=== PATIENT | female | born 1960 | race Caucasian/White ===

== ENCOUNTER 2020-02-05 12:55 | Emergency (ER) | payer BC, OTHER ==
[~2020-02-05 12:55] MED LIST: CTRZ10T; HCTZ12.5T; KCL10CCR; LVT.15T
--- NOTE | 2020-02-05 12:59 | ED Cardiac General ---
History of Present Illness General Chief Complaint: Chest Pain Stated Complaint: CHEST PAIN History of Present Illness Date Seen by Provider: Feb 05, 2020 Time Seen by Provider: 12:59 Initial Comments 59-year-old female presents with left sided lower chest upper abdomen pain that radiates to her back. Patient reports that started around 12:15. Shortly after that she took 324 mg of aspirin with no relief. Patient reports that the pain is a mild discomfort. That nothing makes it worse or better. She has no shortness of breath, diaphoresis, nausea, vomiting, fevers, chills, cough. Patient reports that in 2018 she had a heart attack. Patient reports a repeat cardiac catheterization at [facility] and October that was completely normal with improvement from her prior catheterization. Allergies and Home Medications Allergies Coded Allergies: Azithromycin (Unverified Allergy, Intermediate, HIVES AND UNABLE TO BREATHE, 06/14/06) Sulfa (Sulfonamides) (Unverified Allergy, Mild, HIVES, 06/14/06) Patient Home Medication List Home Medication List Reviewed: Yes Review of Systems Review of Systems Constitutional: No chills, No dizziness, No fever, No malaise EENTM: No Symptoms Reported Respiratory: Denies Cough, Denies Shortness of Air, Denies Wheezing Cardiovascular: Chest Pain; Denies Irregular Heart Rate, Denies Lightheadedness, Denies Palpitations, Denies Syncope Gastrointestinal: Denies Abdominal Pain, Denies Diarrhea, Denies Nausea, Denies Vomiting Musculoskeletal: see HPI Skin: no symptoms reported Psychiatric/Neurological: No Symptoms Reported Endocrine: No Symptoms Reported Hematologic/Lymphatic: No Symptoms Reported Past Awqpljo-Lcaopv-Osrtpw Hx Past Med/Social Hx: Reviewed Nursing Past Med/Soc Hx Patient Social History Recent Foreign Travel: No Contact w/Someone Who Travel: No Past Medical History Reproductive Disorders: No Physical Exam Vital Signs Vital Signs - First Documented 02/05/20 13:00 Temp 35.7 Pulse 99 Resp 16 B/P (MAP) 177/85 (115) Pulse Ox 99 Capillary Refill : Height, Weight, BMI Height: '" Weight: lbs. oz. kg; BMI Method: General Appearance: No Apparent Distress, WD/WN HEENT: Moist Mucous Membranes Neck: Non Tender, Supple Respiratory: Lungs Clear, Normal Breath Sounds, No Accessory Muscle Use, No Respiratory Distress Cardiovascular: Regular Rate, Rhythm, No Edema, Normal Peripheral Pulses Gastrointestinal: Non Tender, Soft Extremity: Normal Capillary Refill, Normal Range of Motion Neurologic/Psychiatric: Alert, Oriented x3, Normal Mood/Affect, associate counsel II-XII Norm as Tested Skin: Normal Color, Warm/Dry Progress/Results/Core Measures Results/Orders Lab Results Laboratory Tests Test 02/05/20 13:09 02/05/20 15:01 Range/Units White Blood Count 10.8 4.3-11.0 10^3/uL Red Blood Count 4.47 4.35-5.85 10^6/uL Hemoglobin 13.9 11.5-16.0 G/DL Hematocrit 41 35-52 % Mean Corpuscular Volume 92 80-99 FL Mean Corpuscular Hemoglobin 31 25-34 PG Mean Corpuscular Hemoglobin Concent 34 32-36 G/DL Red Cell Distribution Width 13.3 10.0-14.5 % Platelet Count 202 130-400 10^3/uL Mean Platelet Volume 10.1 7.4-10.4 FL Immature Granulocyte % (Auto) 0 % Neutrophils (%) (Auto) 79 H 42-75 % Lymphocytes (%) (Auto) 15 12-44 % Monocytes (%) (Auto) 3 0-12 % Eosinophils (%) (Auto) 2 0-10 % Basophils (%) (Auto) 1 0-10 % Neutrophils # (Auto) 8.5 H 1.8-7.8 X 10^3 Lymphocytes # (Auto) 1.6 1.0-4.0 X 10^3 Monocytes # (Auto) 0.4 0.0-1.0 X 10^3 Eosinophils # (Auto) 0.2 0.0-0.3 10^3/uL Basophils # (Auto) 0.1 0.0-0.1 10^3/uL Immature Granulocyte # (Auto) 0.0 0.0-0.1 10^3/uL Prothrombin Time 12.6 12.2-14.7 SEC INR Comment 0.9 0.8-1.4 Activated Partial Thromboplast Time 24 24-35 SEC Sodium Level 142 135-145 MMOL/L Potassium Level 4.3 3.6-5.0 MMOL/L Chloride Level 104 98-107 MMOL/L Carbon Dioxide Level 24 21-32 MMOL/L Anion Gap 14 5-14 MMOL/L Blood Urea Nitrogen 13 7-18 MG/DL Creatinine 0.73 0.60-1.30 MG/DL Estimat Glomerular Filtration Rate > 60 BUN/Creatinine Ratio 18 Glucose Level 151 H 70-105 MG/DL Calcium Level 9.2 8.5-10.1 MG/DL Corrected Calcium 9.0 8.5-10.1 MG/DL Magnesium Level 1.8 1.6-2.4 MG/DL Total Bilirubin 0.7 0.1-1.0 MG/DL Aspartate Amino Transf (AST/SGOT) 87 H 5-34 U/L Alanine Aminotransferase (ALT/SGPT) 53 0-55 U/L Alkaline Phosphatase 287 H 40-136 U/L Myoglobin 26.3 10.0-92.0 NG/ML Troponin I < 0.30 < 0.30 <0.30 NG/ML Pro-B-Type Natriuretic Peptide 76.3 H <75.0 PG/ML Total Protein 7.6 6.4-8.2 GM/DL Albumin 4.2 3.2-4.5 GM/DL Lipase 26 8-78 U/L My Orders Orders - ESCALANTE,QUINTON L DO Cbc With Automated Diff (02/05/20 13:03) Magnesium (02/05/20 13:03) Chest 1 View Ap/Pa Only (02/05/20 13:03) Ekg Tracing (02/05/20 13:03) Comprehensive Metabolic Panel (02/05/20 13:03) Myoglobin Serum (02/05/20 13:03) Protime With Inr (02/05/20 13:03) Partial Thromboplastin Time (02/05/20 13:03) Monitor-Rhythm Ecg Trace Only (02/05/20 13:03) Lipid Panel (02/06/20 06:00) Ed Iv/Invasive Line Start (02/05/20 13:03) Lipase (02/05/20 13:03) Troponin I Fs (02/05/20 13:03) Probnp Fs (02/05/20 13:03) Troponin I Fs (02/05/20 14:46) Vital Signs/I&O 02/05/20 13:00 Temp 35.7 Pulse 99 Resp 16 B/P (MAP) 177/85 (115) Pulse Ox 99 Progress Progress Note : Time: 15:49 Progress Note Patient with negative EKG for any acute changes along with a negative troponin 2. Patient had a heart catheter in October that was also negative and improved from her previous one 2 years ago. Discussed outpatient follow-up with her taker away versus cardiology consult and transfer to her taker away and over them part. This time both her and I feel is reasonable that she can follow-up outpatient. I did discuss with her symptoms worsen she should return the ER or follow up with him sooner. Patient stable and will be discharged home Initial ECG Impression Date: Feb 05, 2020 Initial ECG Impression Time: 13:03 Initial ECG Rate: 92 Initial ECG Rhythm: Normal Sinus Initial ECG Impression: Nonspecific Changes Comment sinus, hr 92, non specific changes, no acute mi Diagnostic Imaging Diagonstic Imaging: Xray Plain Films/CT/US/NM/MRI: chest Comments [facility] [place], [place] NAME: [facility]JIT [facility] REC#: [id number] PT STATUS: REG ER : 1960 PHYSICIAN: QUINTON ESCALANTE DO ADMIT DATE: 02/05/20/ER FS Signed Date of Exam:02/05/20 CHEST 1 VIEW AP/PA ONLY Indication: Chest pain Portable chest 12:14 PM Heart size and pulmonary vascularity are normal. Lungs are clear. There are no effusions or pneumothoraces. IMPRESSION: Negative chest Dictated by: Dictated on workstation # [id number] Dict: 02/05/20 1323 Trans: 02/05/20 1324 TB [id number] Interpreted by: WERO GOMEZ MD Electronically signed by: WERO GOMEZ MD 02/05/20 1324 Departure Impression Primary Impression: Chest pain Qualified Codes: R07.9 - Chest pain, unspecified Disposition: 01 HOME, SELF-CARE Condition: Stable Departure-Patient Inst. Referrals: JEET ROMERO MD (PCP/Family) Primary Care Physician Patient Instructions: Chest Pain (DC), Chest Pain That Is Not Caused by the Heart (DC) Add. Discharge Instructions: Call your taker away for an outpatient appointment Return to the ER as needed if symptoms worsen All discharge instructions reviewed with patient and/or family. Voiced understanding. QUINTON ESCALANTE DO Feb 05, 2020 12:59
--- NOTE | 2020-02-05 13:25 | Diagnostic Imaging Report ---
Indication: Chest pain Portable chest 12:14 PM Heart size and pulmonary vascularity are normal. Lungs are clear. There are no effusions or pneumothoraces. IMPRESSION: Negative chest Dictated by: Dictated on workstation # [id number]
[2020-02-05 13:54] LABS: BASOPHILS % (AUTO) 1 % (0-10); EOSINOPHILS # (AUTO) 0.2 10^3/uL (0.0-0.3); EOSINOPHILS % (AUTO) 2 % (0-10); HEMATOCRIT 41 % (35-52); HEMOGLOBIN 13.9 G/DL (11.5-16.0); LYMPHOCYTES # (AUTO) 1.6 X 10^3 (1.0-4.0); LYMPHOCYTES % (AUTO) 15 % (12-44); MEAN CORPUSCULAR HEMOGLOBIN 31 PG (25-34); MEAN CORPUSCULAR HGB CONC 34 G/DL (32-36); MEAN CORPUSCULAR VOLUME 92 FL (80-99); MEAN PLATELET VOLUME 10.1 FL (7.4-10.4); MONOCYTES # (AUTO) 0.4 X 10^3 (0.0-1.0); MONOCYTES % (AUTO) 3 % (0-12); NEUTROPHILS # (AUTO) 8.5 X 10^3 (1.8-7.8); NEUTROPHILS % (AUTO) 79 % (42-75); PLATELET COUNT 202 10^3/uL (130-400); WHITE BLOOD COUNT 10.8 10^3/uL (4.3-11.0)
[2020-02-05 13:55] LABS: BASOPHILS # (AUTO) 0.1 10^3/uL (0.0-0.1); INR 0.9 (0.8-1.4); PROTHROMBIN TIME PATIENT 12.6 SEC (12.2-14.7)
[2020-02-05 13:56] LABS: CHLORIDE 104 MMOL/L (98-107); POTASSIUM 4.3 MMOL/L (3.6-5.0); SODIUM 142 MMOL/L (135-145)
[2020-02-05 13:57] LABS: ALANINE AMINOTRANSFERASE 53 U/L (0-55); ALBUMIN 4.2 GM/DL (3.2-4.5); ALKALINE PHOSPHATASE 287 U/L (40-136); BILIRUBIN,TOTAL 0.7 MG/DL (0.1-1.0); BUN/CREATININE RATIO 18; CALCIUM 9.2 MG/DL (8.5-10.1); CARBON DIOXIDE 24 MMOL/L (21-32); CREATININE SERUM 0.73 MG/DL (0.60-1.30); GFR ESTIMATED > 60; GLUCOSE 151 MG/DL (70-105); MAGNESIUM 1.8 MG/DL (1.6-2.4); TOTAL PROTEIN 7.6 GM/DL (6.4-8.2)
[2020-02-05 13:58] LABS: LIPASE 26 U/L (8-78)
[2020-02-05 15:56] VITALS: BP 129/89
== END 2020-02-05 15:56 | disposition home or self-care (01) ==
LOC: EDUNIT# 12:55 → ER FS 12:57
DX: R07.9 Chest pain, unspecified (principal); Z88.1 Allergy status to other antibiotic agents; Z88.2 Allergy status to sulfonamides
CPT/HCPCS: 36415; 71045; 80053; 83690; 83735; 83874; 83880; 84484; 85025; 85610; 85730; 93041

== ENCOUNTER → 2021-02-28 | Outpatient (CLI) | payer BC ==
[~2021-02-28] VITALS: Ht 162.5 cm; Wt 113.6 kg
[~2021-02-28] MED LIST changes: +ACETAMINOPHEN 500 MG TAB (TYLENOL) PO PRN; +BAMLANIVIMAB 700 MG/ETESEVIMAB 1,400 MG IN NS IV ONE; +EPINEPHrine INJECTION 1 MG/ML AMP IM PRN; +ONDANSETRON 4 MG/2 ML (SDV) Z0FRAN IV PRN; +diphenhydrAMINE 50 MG/ML INJ (BENADRYL) IV PRN
[2021-02-28 11:08] VITALS: BP 146/88
[2021-02-28 11:10] VITALS: BP 146/88
[2021-02-28 12:35] VITALS: BP 130/61
== END ==
LOC: INFUSION 11:05
PROVIDERS: ATTEND Nurse Practitioner Family
DX: U07.1 COVID-19 (principal)